=== PATIENT | female | born 1960 | race Caucasian/White ===

== ENCOUNTER → 2016-08-24 | Outpatient (CLI) | payer BC ==
[2016-08-24 08:05] LABS: CH 29.4; CHCM 33.2; HCT 42.6 % (34.0-46.0); HDW 2.59; HGB 14.3 gm/dL (11.4-16.0); MCH 29.9 pg (25.0-35.0); MCHC 33.6 g/dL (31.0-37.0); Mean Platelet Volume 7.7; RBC 4.79 m/uL (3.80-5.40); RDW 13.7 % (11.5-15.5); WBC 6.6 k/uL (3.8-10.6)
[2016-08-24 08:09] LABS: Prothrombin Time 10.5 sec (9.0-12.0)
[2016-08-24 08:11] LABS: Anion Gap 9 mmol/L; Blood Urea Nitrogen 13 mg/dL (7-17); Calcium 9.5 mg/dL (8.4-10.2); Carbon Dioxide 26 mmol/L (22-30); Chloride 102 mmol/L (98-107); Glucose 76 mg/dL (74-99); Non-African American GFR(MDRD) >60 (>60 ml/min/1.73 sqM); Potassium 4.9 mmol/L (3.5-5.1); Sodium 137 mmol/L (137-145)
== END | disposition home or self-care (01) ==
LOC: LABWHC1 07:33
PROVIDERS: ATTEND Internal Medicine
DX: Z01.812 Encounter for preprocedural laboratory examination (principal)
CPT/HCPCS: 36415; 80048; 85027; 85610

== ENCOUNTER 2018-11-28 15:00 | Emergency (ER) | payer BC ==
[2018-11-28 15:09] VITALS: RESP 18; TEMP 98
--- NOTE | 2018-11-28 17:19 | XR ---
EXAMINATION TYPE: XR foot complete LT DATE OF EXAM: 11/28/2018 COMPARISON: NONE HISTORY: Foot pain TECHNIQUE: 3 views FINDINGS: There is previous surgery on the first metatarsal with osteotomy of the first metatarsal he ad. There is moderate hallux valgus deformity. There is severe narrowing of the first MP joint space. I see no acute fracture nor dislocation. IMPRESSION: Previous surgery. No fracture seen. Moderate osteoarthritis and hallux valgus at the firs t MP joint.
--- NOTE | 2018-11-28 17:37 | ED ---
General Adult HPI - General Chief complaint: Wound/Laceration Stated complaint: poss gout on foot/infection Time Seen by Provider: 11/28/18 16:04 Source: patient Mode of arrival: ambulatory Limitations: no limitations - History of Present Illness Initial comments: Patient is a 58-year-old female with a history of scleroderma is presenting to the emergency department with left foot pain. Patient reports that she saw her highway maintenance worker approximately 2 weeks ago who prescribed Keflex for redness and inflammation on the left first MTP joint. Patient reports that she finished the Keflex days ago and the redness, edema and pain has decreased but not completely resolved. She reports she is coming to the emergency department to make sure that is not an infection. Patient reports a history of possible gout. Patient denies getting any treatment for gout. Patient states that she has a bunion on bilateral feet that she is seeking help for. Patient denies any discharge on the left MTP joint. Patient denies any fever, chills or night sweats. Patient reports that she drinks plenty of water, lower alcohol intake and is not on hydrochlorothiazide. - Related Data Home Medications Medication Instructions Recorded Confirmed FLUoxetine HCL [PROzac] 20 mg PO HS 06/28/14 11/28/18 Pantoprazole Sodium [Protonix] 40 mg PO BID 06/28/14 11/28/18 Furosemide [Lasix] 20 mg PO DAILY 11/28/18 11/28/18 Macitentan [Opsumit] 10 mg PO DAILY 11/28/18 11/28/18 Sildenafil [Revatio] 20 mg PO DAILY 11/28/18 11/28/18 Previous Rx's Medication Instructions Recorded Indomethacin [Indocin] 50 mg PO TID PRN #30 capsule 11/28/18 Allergies Allergy/AdvReac Type Severity Reaction Status Date / Time codeine AdvReac Nausea & Verified 11/28/18 16:58 Vomiting Review of Systems ROS Statement: Those systems with pertinent positive or pertinent negative responses have been documented in the HPI. ROS Other: All systems not noted in ROS Statement are negative. Past Medical History Past Medical History: Cancer, GERD/Reflux, Hyperlipidemia, Musculoskeletal Disorder Additional Past Medical History / Comment(s): hx skin ca-2013 face. scleroderma History of Any Multi-Drug Resistant Organisms: None Reported Past Surgical History: Section, Tonsillectomy Additional Past Surgical History / Comment(s): basal cell ca removed from face. calciumdeposits removed from fingers. lt bunionectomy Past Anesthesia/Blood Transfusion Reactions: Motion Sickness, Postoperative Nausea & Vomiting (PONV) Past Psychological History: No Psychological Hx Reported Smoking Status: Never smoker Past Alcohol Use History: Occasional - Past Family History Mother Family Medical History: Cancer General Exam Limitations: no limitations General appearance: alert, in no apparent distress Head exam: Present: atraumatic, normocephalic, normal inspection Eye exam: Present: normal appearance, PERRL, EOMI Pupils: Present: normal accommodation ENT exam: Present: normal exam, mucous membranes moist, normal external ear exam Neck exam: Present: normal inspection, full ROM Respiratory exam: Present: normal lung sounds bilaterally Cardiovascular Exam: Present: regular rate, normal rhythm, normal heart sounds Extremities exam: Present: normal inspection (Bunion on right MTP joint. Mild edema on the left MTP joint with no discharge or erythema.), full ROM, normal capillary refill, other (+2 dorsalis pedis and posterior tibialis, lena aterally.). Absent: tenderness (No tenderness on palpation or movement of the left hallux), calf tenderness (Bilateral) Back exam: Present: normal inspection, full ROM Neurological exam: Present: alert, oriented X3 Psychiatric exam: Present: normal affect, normal mood Course Vital Signs 11/28/18 11/28/18 15:05 18:10 Temperature 98.0 F Pulse Rate 70 62 Respiratory 18 18 Rate Blood Pressure 114/71 110/71 O2 Sat by Pulse 95 96 Oximetry Medical Decision Making - Medical Decision Making Patient is a [id number] feel presents emergency Department for left foot pain. X-ray of the left foot is negative for acute fractures, dislocations or signs of osteomyelitis. Based on history of physical examination the patient does not appear to have an ongoing infection in the left first MTP joint. I also suspect the patient to have previously experienced gout attacks. Patient will be prescribed indomethacin and given strict directions on when to use it. I do not suspect the patient to currently have gout because she is not extremely tender nor does she had pain with movement of the left hallux. Patient was also given an orthopedic shoe to alleviate some of pain with weightbearing. Patient advised to follow-up with her highway maintenance worker. Dr. Holloway also examined the patient and is in agreement with the treatment plan. Patient also advised to follow-up with an start up specialist. Disposition Clinical Impression: Foot pain, left Disposition: HOME SELF-CARE Condition: Stable Instructions (If sedation given, give patient instructions): Gout (ED) Additional Instructions: Please take prescribed medication as directed. Please follow up with [facility]. Please return to emergency department if symptoms worsen. Prescriptions: Indomethacin [Indocin] 50 mg PO TID PRN #30 capsule PRN Reason: Pain Is patient prescribed a controlled substance at d/c from ED?: No Referrals: None,Stated [Primary Care Provider] - 1-2 days Greg Dunham MD [REFERRING] - 1-2 days José Luis Demarco MD [Medical Doctor] - 1-2 days Time of Disposition: 17:37
[2018-11-28 18:11] VITALS: BP 110/71; PULSE 62
== END 2018-11-28 18:11 | disposition home or self-care (01) ==
LOC: EC 15:00
DX: M79.672 Pain in left foot (principal); K21.9 Gastro-esophageal reflux disease without esophagitis; E78.5 Hyperlipidemia, unspecified; Z85.828 Personal history of other malignant neoplasm of skin; Z79.899 Other long term (current) drug therapy; Z88.5 Allergy status to narcotic agent
CPT/HCPCS: 99283

== ENCOUNTER → 2023-07-27 | Outpatient (CLI) | payer BC ==
--- NOTE | 2023-07-27 13:21 | XR ---
EXAMINATION TYPE: XR knee limited RT DATE OF EXAM: 07/27/2023 COMPARISON: 05/03/2014 HISTORY: Fall one week prior swollen TECHNIQUE: Two-view right knee FINDINGS: No acute fractures or dislocations are evident. No joint effusion is evident. There is mild soft tissue swelling over the patella. No underlying collection or fracture is evident. There is a subcutaneous calcification near the insertion of the patellar tendon on the tibia. This wa s present 2013 IMPRESSION: 1. No acute osseous abnormality. 2. Mild swelling superficial to the patella.
--- NOTE | 2023-07-27 13:23 | XR ---
EXAMINATION TYPE: XR chest 2V DATE OF EXAM: 07/27/2023 COMPARISON: None INDICATION: Pain, fall one week prior TECHNIQUE: Frontal and lateral views of the chest are obtained. FINDINGS: The heart size is normal. The pulmonary vasculature is normal. The lungs are clear. No pneumothorax is evident. No displaced rib fractures are identified. IMPRESSION: 1. No acute pulmonary process.
== END | disposition home or self-care (01) ==
LOC: RADXRMAIN 10:40
PROVIDERS: ATTEND Family Medicine
DX: M79.89 Other specified soft tissue disorders (principal); M25.561 Pain in right knee; R07.89 Other chest pain; W10.8XXA Fall (on) (from) other stairs and steps, initial encounter
CPT/HCPCS: 71046